=== PATIENT | female | born 1940 | race Caucasian/White ===

== ENCOUNTER 2022-01-22 07:06 | Day surgery (SDC) | payer OTHER, MEDICARE ==
[2022-01-18 15:24] VITALS: BMI 34.9
[2022-01-22] MEDS ORDERED: CEFAZOLIN 2 GM in DEXTROSE 5%-WATER - 50 ML IVPB ONE (07:16)
[2022-01-22] MEDS ORDERED: THROMBIN (BOVINE) 5,000 UNIT VIAL TP ONE (07:31)
[2022-01-22] MEDS: CELECOXIB 200 MG CAPSULE PO ONE ×2 (07:50→19:42)
[2022-01-22] MEDS ORDERED: VANCOMYCIN 1,000 MG VIAL (RESTRICTED TO ID ONLY) ONE ×2 (08:00→09:33)
[2022-01-22] MEDS ORDERED: PROMETHAZINE HCL 25 MG/1 ML VIAL IVPUSH PRN (08:05)
[2022-01-22] MEDS ORDERED: ONDANSETRON 4 MG/2 ML VIAL IVPUSH PRN (08:05)
[2022-01-22] MEDS ORDERED: MIDAZOLAM HCL 2 MG/2 ML SINGLE DOSE VIAL ONE ×2 (08:09)
[2022-01-22] MEDS ORDERED: PROPOFOL 20 ML ONE ×2 (08:09→10:00)
[2022-01-22] MEDS ORDERED: ROPIVACAINE HCL 0.5% 30ML VIAL ONE (08:14)
[2022-01-22] MEDS ORDERED: LACTATED RINGERS SOLUTION 1,000 ML IV SCH ×2 (08:15→09:45)
[2022-01-22] MEDS ORDERED: BUPIVACAINE HCL 50 ML ONE (08:56)
[2022-01-22] MEDS ORDERED: PATIENT'S OWN MEDICATION (NON-FORMULARY) (Omeprazole 20 MG Capsule.Dr) PO PRN (09:36)
[2022-01-22] MEDS ORDERED: PANTOPRAZOLE 20 MG TABLET PO PRN (09:49)
[2022-01-22] MEDS ORDERED: MULTIVIT PO SCH (10:00)
[2022-01-22] MEDS ORDERED: PATIENT'S OWN MEDICATION (NON-FORMULARY) (Olmesartan Medoxomil [Olmesartan Medoxomil] 5 MG PO SCH (10:00)
[2022-01-22] MEDS ORDERED: BUPIVICAINE 0.25%/MORPH PF/KETOROLAC - 51ML DISP.SYRINGE IA ONE ×2 (10:18→10:40)
[2022-01-22] MEDS ORDERED: DEXAMETHASONE SOD PHOSPHATE 4 MG/1 ML VIAL ONE (11:02)
[2022-01-22] MEDS ORDERED: ONDANSETRON 4 MG/2 ML VIAL ONE (11:02)
[2022-01-22] MEDS ORDERED: oxyCODONE HCL 5 MG TABLET PO PRN ×2 (11:34)
[2022-01-22] MEDS: ACETAMINOPHEN 1000 MG/100 ML BAG IVPB ONE ×2 (11:39→19:43)
[2022-01-22] MEDS ORDERED: KETOROLAC TROMETHAMINE 30 MG/1 ML VIAL IVPUSH SCH (12:00)
[2022-01-22] MEDS ORDERED: ceFAZolin SODIUM 1 GM VIAL ONE ×2 (17:44→23:46)
[2022-01-22] MEDS ORDERED: DEXTROSE 5%-WATER - 50 ML IVPB ONE ×2 (17:44→23:46)
[2022-01-22] MEDS: ACETAMINOPHEN 500 MG TABLET (FP) PO SCH ×2 (17:49→23:54)
[2022-01-22] MEDS: CEFAZOLIN 2 GM in DEXTROSE 5%-WATER - 50 ML IVPB SCH (17:50)
[2022-01-22] MEDS: PARoxetine HCL 20 MG TABLET PO SCH (19:42)
[2022-01-22] MEDS: LOSARTAN POTASSIUM 25 MG TABLET PO SCH (19:42)
[2022-01-22] MEDS: SENNOSIDES/DOCUSATE COMBO (SENNA PLUS) TABLET (UD) PO SCH ×2 (19:43→21:30)
[2022-01-22] MEDS ORDERED: MELATONIN 1 MG TABLET PO SCH (22:00)
[2022-01-23] MEDS: CEFAZOLIN 2 GM in DEXTROSE 5%-WATER - 50 ML IVPB SCH (01:39)
[2022-01-23] MEDS: ACETAMINOPHEN 500 MG TABLET (FP) PO SCH (05:31)
[2022-01-23] MEDS ORDERED: ASPIRIN 325 MG TABLET PO SCH (08:00)
[2022-01-23] MEDS: PARoxetine HCL 20 MG TABLET PO SCH (09:08)
[2022-01-23] MEDS: LOSARTAN POTASSIUM 25 MG TABLET PO SCH (09:08)
[2022-01-23] MEDS: SENNOSIDES/DOCUSATE COMBO (SENNA PLUS) TABLET (UD) PO SCH (09:09)
[2022-01-23 09:43] VITALS: BP 134/46; PULSE 59; TEMP 99
[2022-01-23] MEDS ORDERED: MULTIVITAMINS (DAILY MVI) TABLET (FP) PO SCH (10:00)
[2022-01-23] MEDS ORDERED: HYDROCHLOROTHIAZIDE 12.5 MG CAPSULE (FP) PO SCH (10:00)
== END 2022-01-23 11:52 | disposition home health service (06) ==
LOC: FASUSAT 07:06 → FM/S 12:50 → FASUSAT 01-23 11:52
PROVIDERS: ATTEND Orthopaedic Surgery
PROC: 8E0YXBZ Computer Assisted Procedure of Lower Extremity (ICD-10-PCS; 2022-01-22)
PROC: 8E0Y0CZ Robotic Assisted Procedure of Lower Extremity, Open Approach (ICD-10-PCS; 2022-01-22)
PROC: 0SRD0L9 Replacement of Left Knee Joint with Medial Unicondylar Synthetic Substitute, Cemented, Open Approach (ICD-10-PCS; principal; 2022-01-22 09:48)
DX: M17.12 Unilateral primary osteoarthritis, left knee (principal)
CPT/HCPCS: 20985; 27446; C1776; S2900; 73560-TC-LT-FY; 94760; 97162-GP